=== PATIENT | female | born 1945 | race Caucasian/White ===

== ENCOUNTER 2021-12-01 11:53 | Emergency (ER) | payer MEDICARE, BC ==
[2021-12-01 13:00] LABS: #Monocytes 0.5 10x3/uL (0.0-1.1); #Neutrophils 4.2 10x3/uL (1.5-8.4); %Basophils 0.4 % (0.0-2.0); %Lymphocytes 10.3 % (18.0-47.0); %Monocytes 9.2 % (0.0-10.0); %Neutrophils 79.7 % (40.0-75.0); Hemoglobin 10.6 g/dL (12.0-15.5); Mean Corpuscular HGB CONC 30.7 g/dL (32.0-36.0); Mean Corpuscular Hemoglobin 31.4 pg (27.0-33.0); Mean Corpuscular Volume 102.1 fl (81.6-98.3); Mean Platelet Volume 11.3 fl (7.4-10.4); Platelet Count 178 10x3/uL (150-450); RBC Distribution Width 13.5 % (11.5-14.5); Red Blood Cell (RBC) Count 3.38 10x6/uL (3.90-5.03); White Blood Cell (WBC) Count 5.2 10x3/uL (3.5-10.5)
[2021-12-01 13:20] LABS: ALT (SGPT) 12 U/L (8-55); AST (SGOT) 18 U/L (5-34); Albumin 3.6 g/dL (3.4-4.8); Alkaline Phosphatase 56 U/L (40-110); Anion Gap 14 mmol/L (10-20); BUN (Urea Nitrogen) 10 mg/dL (9.8-20.1); Bilirubin, Total 0.6 mg/dL (0.2-1.2); Calc. Creatinine Clearance 0 mL/min (70-130); Calcium 8.6 mg/dL (7.8-10.44); Carbon Dioxide 21 mmol/L (23-31); Chloride 105 mmol/L (98-107); Glucose 108 mg/dL (83-110); Potassium 3.3 mmol/L (3.5-5.1); Protein, Total 5.6 g/dL (5.8-8.1); Sodium 137 mmol/L (136-145)
[2021-12-01 14:40] LABS: Bilirubin Neg (Negative); Blood, Urine 25 (Negative); Clarity Clear (Clear); Glucose, Urine (Dipstick) Normal (Negative); Ketone, Urine 5 mg/dL (Negative); Leukocyte 100 (Negative); Nitrite Negative (Negative); Protein, Urine (Dipstick) Negative (Neg-Trace); Urobilinogen Normal mg/dL (Less than 2)
[2021-12-01 14:45] LABS: Bacteria/HPF Rare-Few HPF (None Seen)
== END 2021-12-01 16:37 | disposition home or self-care (01) ==
LOC: CSHERS 11:53
DX: D64.9 Anemia, unspecified (principal); R00.1 Bradycardia, unspecified; I71.4 Abdominal aortic aneurysm, without rupture; I10 Essential (primary) hypertension; Z79.899 Other long term (current) drug therapy
CPT/HCPCS: 80053; 81003; 81015; 82274; 84484; 85025; 87077; 87086; 87186; 93005

== ENCOUNTER 2022-04-25 09:43 | Outpatient (CLI) | payer MEDICARE, BC | END 2022-04-25 09:44 | disposition home or self-care (01) | LOC: CSHCT 09:43 | PROVIDERS: ATTEND Psychiatry & Neurology Neurology | DX: G31.84 Mild cognitive impairment of uncertain or unknown etiology (principal) | CPT/HCPCS: 70450 ==

== ENCOUNTER 2024-11-29 10:29 | Outpatient (CLI) | payer MEDICARE | END 2024-11-29 10:30 | disposition home or self-care (01) | LOC: CSHULT 10:29 | PROVIDERS: ATTEND Nurse Practitioner Family | DX: M79.605 Pain in left leg (principal) ==